=== PATIENT | male | born 1965 | race African-American/Black ===

== ENCOUNTER 2025-03-16 12:21 | Emergency (ER) | payer BC ==
[~2025-03-16] VITALS: Ht 172.7 cm; Wt 119.9 kg
[2025-03-16] MEDS ORDERED: CORICIDIN HBP355 M3 PO (13:16)
[2025-03-16] MEDS ORDERED: AZITHROMYCIN250 MG PO (13:16)
[2025-03-16 13:27] VITALS: PULSE 88; RESP 18; TEMP 98.3; O2SAT 96
[2025-03-16] MEDS ORDERED: BENICAR HCT 201 EACH (14:13)
[2025-03-16] MEDS ORDERED: NEXIUM40 MG PO (14:13)
[2025-03-16] MEDS ORDERED: LISINOPRIL10 MG PO (14:13)
== END 2025-03-16 13:27 | disposition home or self-care (01) ==
LOC: FSED 12:26
DX: R05.9 Cough, unspecified (principal); J40 Bronchitis, not specified as acute or chronic; J06.9 Acute upper respiratory infection, unspecified; Z11.52 Encounter for screening for COVID-19
CPT/HCPCS: 0223U; 87400; 99283